=== PATIENT | male | born 1965 | race African-American/Black ===

== ENCOUNTER 2016-11-06 14:17 | Emergency (ER) | payer OTHER ==
[~2016-11-06] VITALS: Ht 188 cm; Wt 101.0 kg
[2016-11-06] MEDS ORDERED: MOTRIN600 MG PO (15:03)
[2016-11-06 16:33] VITALS: BP 163/113
== END 2016-11-06 17:01 | disposition home or self-care (01) ==
LOC: EME 14:17
DX: S60.221A Contusion of right hand, initial encounter (principal); V68.5XXA Driver of heavy transport vehicle injured in noncollision transport accident in traffic accident, initial encounter; F17.200 Nicotine dependence, unspecified, uncomplicated
CPT/HCPCS: 99281; 99283